=== PATIENT | female | born 1995 | race Caucasian/White ===

== ENCOUNTER 2018-04-24 01:40 | Inpatient (IN) | payer SELFPAY ==
[2018-04-24 02:22] LABS: ADD MAN DIFF? NO
[2018-04-24 02:25] LABS: BASOPHILS % 0.3 % (0.0-2.0); EOSINOPHILS # 0.1 10^3/ul (0.0-0.5); EOSINOPHILS % 0.8 % (0.0-7.0); HEMATOCRIT 31.5 % (37.0-47.0); HEMOGLOBIN 10.2 g/dl (12.0-16.0); LYMPHOCYTES # 3.4 10^3/ul (0.8-2.9); LYMPHOCYTES % 28.2 % (15.0-51.0); MEAN CORPUSCULAR HEMOGLOBIN 27.5 pg (29.0-33.0); MEAN CORPUSCULAR HGB CONC 32.4 g/dl (32.0-37.0); MEAN CORPUSCULAR VOLUME 84.9 fl (82.0-101.0); MEAN PLATELET VOLUME 12.5 fl (7.4-10.4); MONOCYTE # 0.8 10^3/ul (0.3-0.9); MONOCYTES % 6.8 % (0.0-11.0); NEUTROPHIL # 7.7 10^3/ul (1.6-7.5); PLATELET COUNT 151 10^3/UL (140-415); RED BLOOD COUNT 3.71 10^6/ul (4.20-5.40); RED CELL DISTRIBUTION WIDTH 13.8 % (11.5-14.5)
[2018-04-24 02:25] LABS: WHITE BLOOD COUNT 12.2 10^3/ul (4.8-10.8)
[2018-04-24] MEDS ORDERED: BUTORPHANOL 2 MG INJ IV (02:30)
[2018-04-24] MEDS ORDERED: OXYTOCIN 30 UNITS/LR 500 ML IV ×3 (02:30→10:30)
[2018-04-24] MEDS ORDERED: CARBOPROST 250 MCG INJ IM ×2 (02:30→10:30)
[2018-04-24] MEDS ORDERED: MISOPROSTOL 200 MCG TAB PR ×2 (02:30→10:30)
[2018-04-24] MEDS ORDERED: IBUPROFEN 600 MG TAB PO (02:30)
[2018-04-24] MEDS ORDERED: LIDOCAINE 1% (MPF) 30 ML INJ INJ (02:30)
[2018-04-24] MEDS ORDERED: METHYLERGONOVINE 0.2 MG INJ IM ×2 (02:30→10:30)
[2018-04-24 02:44] LABS: INR 0.86; PROTIME 11.8 Sec (11.9-14.9); PT RATIO 0.9
[2018-04-24 02:45] LABS: PARTIAL THROMBOPLASTIN TIME 27.1 Sec (25.0-35.0)
[2018-04-24] MEDS: LACTATED RINGER'S 1,000 ML IV (02:58)
[2018-04-24] MEDS ORDERED: FENTAnyl 2MCG/ML-ROPIV 0.2% 100 ML (03:03)
[2018-04-24 03:17] LABS: HEPATITIS B SURFACE ANTIGEN NEGATIVE (NEGATIVE)
[2018-04-24] MEDS ORDERED: FENTAnyl 2MCG/ML-ROPIV 0.2% 100 ML BAG EPI (03:30)
[2018-04-24] MEDS ORDERED: NALOXONE (0.4 MG/ML) INJ IV (03:30)
[2018-04-24] MEDS: LACTATED RINGER'S 1,000 ML IV* ×2 (03:40→16:31)
[2018-04-24 04:11] LABS: AMPHETAMINE/METHAMPHETAMINE Negative (NEGATIVE); BARBITURATES Negative (NEGATIVE); BENZODIAZEPINES Negative (NEGATIVE); CANNABINOIDS Negative (NEGATIVE); COCAINE Negative (NEGATIVE); OPIATES Negative (NEGATIVE)
[2018-04-24] MEDS: OXYTOCIN 30 UNITS/LR 500 ML IV ×2 (10:14→10:44)
[2018-04-24] MEDS ORDERED: HYDROCODONE/APAP (5/325) TAB PO (10:30)
[2018-04-24] MEDS: IBUPROFEN 600 MG TAB PO ×2 (13:30→18:04)
[2018-04-24 19:54] LABS: RAPID PLASMA REAGIN NONREACTIVE (NR)
[2018-04-25] MEDS: IBUPROFEN 600 MG TAB PO ×4 (03:56→18:00)
[2018-04-25 08:21] LABS: ADD MAN DIFF? NO
[2018-04-25 08:25] LABS: WHITE BLOOD COUNT 11.5 10^3/ul (4.8-10.8)
[2018-04-25 08:25] LABS: ABNORMAL IP MESSAGE 1; BASOPHIL # 0.1 10^3/ul (0.0-0.1); BASOPHILS % 0.4 % (0.0-2.0); EOSINOPHILS # 0.2 10^3/ul (0.0-0.5); EOSINOPHILS % 1.4 % (0.0-7.0); HEMATOCRIT 28.1 % (37.0-47.0); HEMOGLOBIN 8.9 g/dl (12.0-16.0); LYMPHOCYTES % 26.3 % (15.0-51.0); MEAN CORPUSCULAR HEMOGLOBIN 27.6 pg (29.0-33.0); MEAN CORPUSCULAR HGB CONC 31.7 g/dl (32.0-37.0); MEAN PLATELET VOLUME 13.1 fl (7.4-10.4); MONOCYTE # 0.8 10^3/ul (0.3-0.9); MONOCYTES % 6.7 % (0.0-11.0); NEUTROPHIL # 7.4 10^3/ul (1.6-7.5); NEUTROPHILS % 64.2 % (39.0-77.0); PLATELET COUNT 124 10^3/UL (140-415); RED BLOOD COUNT 3.23 10^6/ul (4.20-5.40); RED CELL DISTRIBUTION WIDTH 14.3 % (11.5-14.5)
[2018-04-25 08:32] LABS: POSITIVE DIFF @See below
== END 2018-04-25 18:17 | disposition home or self-care (01) | DRG 775 ==
LOC: OBT 01:40 → L-D 01:47 → OBT 01:59 → L-D 01:59 → PP1 12:04
PROVIDERS: Obstetrics & Gynecology
PROC: 10E0XZZ Delivery of Products of Conception, External Approach (ICD-10-PCS; principal; 2018-04-24)
DX: O80 Encounter for full-term uncomplicated delivery (principal); Z37.0 Single live birth; Z3A.38 38 weeks gestation of pregnancy
CPT/HCPCS: 62319; 80307; 85025; 85610; 85730; 86592; 86850; 86900; 86901; 87340